=== PATIENT | female | born 1965 | race Caucasian/White ===

== ENCOUNTER 2016-08-06 02:30 | Emergency (ER) | payer OTHER ==
[2016-08-06] MEDS ORDERED: DIPHENHYDRAMINE 50 MG/ML VIAL ONE (03:05)
[2016-08-06] MEDS ORDERED: METOCLOPRAMIDE 10 MG/2 ML VIAL ONE (03:07)
[2016-08-06] MEDS ORDERED: KETOROLAC 30 MG/ML VIAL ONE (03:07)
[2016-08-06] MEDS ORDERED: SODIUM CHLORIDE 0.9% 1,000 ML ONE (03:08)
== END 2016-08-06 05:03 | disposition home or self-care (01) ==
LOC: ER 02:30
DX: G43.009 Migraine without aura, not intractable, without status migrainosus (principal)
CPT/HCPCS: 96361; 96374; 96375; 99283; J1885